=== PATIENT | female | born 1965 | race Caucasian/White ===

== ENCOUNTER → 2021-09-20 09:28 | Outpatient (CLI) | payer OTHER, SELFPAY | PROVIDERS: PCP Family Medicine; Visit Provider Urology | DX: R30.0 Dysuria (principal) | CPT/HCPCS: 81002; 87086 ==

== ENCOUNTER → 2021-09-22 14:58 | Outpatient (CLI) | payer OTHER, SELFPAY | PROVIDERS: PCP Family Medicine; Visit Provider Urology | DX: R30.0 Dysuria (principal) | CPT/HCPCS: 51701; 87086 ==

== ENCOUNTER → 2021-10-04 08:50 | Outpatient (CLI) | payer OTHER, SELFPAY | PROVIDERS: PCP Family Medicine; Visit Provider Urology | DX: R30.0 Dysuria (principal) | CPT/HCPCS: 51701; 87086 ==

== ENCOUNTER 2022-11-07 07:45 | Inpatient (IN) | payer OTHER, SELFPAY ==
[2022-10-31 08:57] VITALS: BMI 29.7
[2022-11-07] VITALS (18 sets, daily range): BP systolic 84–126; BP diastolic 40–73; PULSE 61–84; RESP 8–18; TEMP 35.7–36.3; O2SAT 84–97; BMI 29.7
--- NOTE | 2022-11-07 | DI.RAD.S_ITS ---
PROCEDURE: XR LUMBAR SPINE 2-3V INDICATIONS: L4-S1 TLIF TECHNIQUE: 2 intraoperative views of the lumbar spine were acquired. COMPARISON: [facility], CR, XR LUMBAR SPINE WITH FLEXION EXTENSION 5 VIEWS, 10/02/2022, 17:49. FINDINGS: Right L4-S5 pedicle screw fixation, new. Left L5-S1 pedicle screw fixation, appears unchanged. L4-L5 intervertebral body spacer. Ray-Keanu sponge noted posteriorly. IMPRESSION: Intraoperative guidance provided. Dictated by: Kamran Moody M.D. on 11/07/2022 at 13:41 Approved by: Kamran Moody M.D. on 11/07/2022 at 13:42
--- NOTE | 2022-11-07 08:36 | SUR.OPER ---
Prone on spine table, head in foam head support, padded chest and pelvic supports, gel pad at knees, lower legs supported by pillows; nipples, genitalia and toes free of pressure, arms secured on foam padded arm boards at <90 degrees abduction. Tape over blanket at thigh secured to table.
[2022-11-07] MEDS: LACTATED RINGERS 1,000 ML 42 ML IV ×2 (08:37→11:48)
--- NOTE | 2022-11-07 08:51 | PM.PREOP ---
Pre-operative Note COVID-19 Criteria for continued procedure: Expected advancement of disease process, Possibility delay results in more complex future surgery or treatment, Increased loss of function, Continuing or worsening of significant or severe pain, Deterioration of the patient's condition or overall health and Delay expected to result in less-positive ultimate med/surg outcome Interval Note History & Physical reviewed/Exam performed by Physician: Yes Changes to H&P: No
[2022-11-07] MEDS: CEFAZOLIN 2 GM/100 ML PREMIX 100 ML IV ×2 (09:40→16:32)
[2022-11-07] MEDS: BUPIVACAINE LIPOSOME 266 MG/20 ML VIAL INJ (10:18)
[2022-11-07] MEDS: BUPIVACAINE 0.25% (PF) 30 ML, EPINEPHrine 0.3 MG INJ (10:19)
--- NOTE | 2022-11-07 12:18 | PM.OP.1 ---
Operative Date/Time/Diagnoses Date of procedure: 11/07/22 Time of procedure: 10:00 Pre-op diagnosis: 1. History of L5-S1 fusion with hardware 2. L4-5 spondylolisthesis 3. L4-5 spinal stenosis Post-op diagnosis: same Procedure & Clinicians Procedure: 1. L4-5 posterolateral and posterior interbody fusion 2. L4-5 posterior interbody cage placement 3. L5-S1 posterior non-segmental instrumentation removal 4. L5-S1 revision laminectomy with exploration of fusion 5. L4-5, L5-S1 posterior segmental instrumentation with pedicle screw placement 6. L5-S1 posterolatearl fusion 7. [place] of bone marrow from iliac crest through a separate incision 8. Utilization of microsurgical technique and operating microscope Same procedure as scheduled: Yes Indications: Patient has been having chronic back pain and worsening lumbar radiculopathy. Patient has history of lumbar fusion from 30 years ago with progressively worsening back pain and leg pain. Patient failed multiple conservative management with worsening pain weakness and numbness in her lower extremity. Patient has been having difficulty performing activity of daily living. After discussing risks benefits of treatment options, patient elected proceed with surgery. Surgeon: Flaca Arciniega Warehouse Inventory Clerk: Jolene Quinones Click Yes if Unassisted: No Anesthesia Type: General Operative Notes Closure Type: primary Specimen(s): none sent Prosthetic devices, grafts, tissues, transplants, or devices: Globus revolve screws, Rise cage Applied: catheter Estimated Blood Loss (mL): 50 Blood products transfused: none Procedure in detail: Patient was seen in the preoperative area. Risks and benefits of the surgery was discussed with the patient. Informed consent was obtained from the patient and placed in the chart. Surgical site was marked. Patient was taken to the operative room. General anesthesia was administered. Prophylactic antibiotic was given to the patient less than 30 min before the incision was made. Patient was placed into a prone position on the Dhruv table. Patient's back was then prepped and draped in the sterile fashion. Time-out was performed at this time. Using patient's previous scar incision was made over the L4-5 L5-S1 interval on the right side. Fascia was incised in line with skin incision. Patient's previously placed hardware over the L5-S1 level was identified by dissecting down to the level the hardware using a Bovie and a Ha. The locking nuts which was removed using universal hardware removal instruments. The locking diane was then removed from the [place] of the pedicle screws using a Vanessa. The pedicle screws were then removed using the screwdriver. The screws were found to have good purchase. The Globus and MARS retractors was then placed into the wound and docked onto the L4 lamina using C-arm guidance. Using microsurgical technique and operating microscope a laminectomy facetectomy was performed by removing the L4 lamina and the L4-5 facet. The laminectomy and facetectomy was performed in order to decompress patient's cauda equina as well as the nerve roots exiting at the L4-5 level. The disc space at L4-5 level was identified next. And a total diskectomy was performed at L4-5 level. The endplates were decorticated using a rasp and shaver. The total diskectomy and decortication was performed at L4-5 level in order to to accomplish a L4-5 fusion. The local bone from the laminectomy and facetectomy was saved for local bone grafting. After the total diskectomy and decortication was completed, Trifecta bone graft material was combined with local bone that was harvested earlier. At this time, a separate skin is incision was made over the iliac crest. A Jamshidi needle was inserted into the iliac crest through a separate skin incision. 5 cc of bone marrow aspiration was obtained through the separate skin incision using a Jamshidi needle from the iliac crest. The bone marrow aspiration was combined with local bone and the Trifecta bone grafting material. The bone grafting material was placed into the L4-5 interbody space along with a expandable cage. The cage was expanded to its maximum height using the torque limiting screwdriver. At this time a mirror image incision was made on the left side. The fascia was incised in line with the skin incision. The fusion mass on the right side was exposed by performing a left-sided hemilaminectomy at L5-S1 level. The hemilaminectomy was performed using the Kerrison rongeur to undercut the lamina at L5-S1 as well removing additional epidural scar tissue for purpose of decompressing the epidural space. The fusion mass was explored and was found have visible motion indicating pseudoarthrosis. Globus MARS retractor was inserted and docked onto the L4-5 L5-S1 posterolateral gutter. Using the power drill, posterior-lateral decortication was performed at L4-5 L5-S1 level until bleeding cortical bone was identified. The remaining bone grafting material was placed into the L4-5 L5-S1 posterior lateral gutter he order to accomplish posterolateral fusion at the L4-5 L5-S1 level. Using the double C-arm technique, pedicle screws were placed into the L4-L5 and S1 pedicles on the right. This was done by placing the Jamshidi needle into the pedicles, then placing the guidewires over the Jamshidi needle, and finally placing the cannulated screws over the guidewires bilaterally. After the pedicle screws were placed, a titanium rods was locked into the heads of the pedicle screws using locking caps and torque limiting screwdriver. During the process of hardware removal, it was found there was significant amount of overgrowth of bone over the hardware. Decision was made not to remove the left-sided hardware and perform a unilateral posterior instrumentation on the right side only. The order to remove the hardware, additional bone debridement was necessary which will cause significant amount of tissue disruption and bleeding. Since stability has been achieved using the current replace hardware, we will perform unilateral posterior instrumentation only. Good purchase was accomplished using all the hardware placed on the right side. After all the hardware was placed, and confirmed with AP and lateral C-arm imaging, the wound was then irrigated with sterile normal saline and packed with Ray-Keanu gauze for 3 min to accomplish hemostasis. After the gauze was removed the deep fascia was closed with #1 Vicryl suture. The subcutaneous layer was closed with 2-0 Vicryl. The skin was closed with skin dustin. Patient tolerated the procedure well. There were no complications. Complications: none Post-operative Condition: stable Disposition: PACU Plan for aftercare: Admit to inpatient hospital
[2022-11-07] MEDS: hydrOXYzine 50 MG/ML INJ IM (12:54)
[2022-11-07] MEDS: LORazepam 2 MG/ML INJ 0.5 MG IV (12:57)
[2022-11-07] MEDS: OXYCODONE/ACETAMINOPHEN 5/325 TABLET 1 TAB PO (13:11)
--- NOTE | 2022-11-07 13:14 | SUR.PHASEI ---
IM injection correction : vistaril given IM in left gluteus medius.
--- NOTE | 2022-11-07 13:23 | SUR.PHASEI ---
Report called to Kaia Mooney
--- NOTE | 2022-11-07 13:44 | SUR.PHASEI ---
Patient transferred to the floor with her belongings bag. Report given to Haylee STODDARD stable. IV patent. Back dressing unchanged. Patient moving all extremities independently and answering simple questions but has not been speaking in sentences.
[2022-11-07] MEDS: LACTATED RINGERS 1,000 ML 125 ML IV ×2 (13:55→22:11)
--- NOTE | 2022-11-07 14:21 | PC.NURSE ---
Pt to room 216 via bed from PACU at 1335. Pt is drowsy but awakens when called by name. Falls back asleep readily but is able to answer questions appropriately. Warm blanket and additional pillows placed for Pt comfort. Reminded Pt not to bend, lift, or twist and to logroll in/out of bed. Oriented Pt to room, call light, bed controls, and tv controls. SCD's on and running. IV infusing as ordered. Pt denies nausea or shortness of breath. Reminded Pt not to get out of bed without assistance. Bed alarm on for safety.
[2022-11-07] MEDS: ONDANSETRON 4 MG/2 ML INJ IV (16:32)
[2022-11-07] MEDS: OXYCODONE IR 10 MG TABLET PO ×2 (16:32→21:25)
[2022-11-07] MEDS: GABAPENTIN 400 MG CAPSULE PO (21:24)
[2022-11-07] MEDS: ATORVASTATIN 20 MG TABLET 40 MG PO (21:24)
[2022-11-07] MEDS: DOCUSATE 100 MG CAPSULE PO (21:24)
[2022-11-07] MEDS: SENNOSIDES 8.6 MG TABLET 17.2 MG PO (21:25)
--- NOTE | 2022-11-07 23:10 | PC.NURSE ---
Patient is alert and oriented. Breath sounds CTA with RA sat of 94%. HRR. Denies nausea. BT present and is passing flatus. Up to BSC with SBA (not using assistive device) and voiding without dysuria. Is adhering to log rolling instructions when turning self in bed. CMS intact although around 2200 she reported new numbness in right upper thigh. Dressing to back is CDI. Wearing bilateral calf SCD's. Medicated earlier with oxycodone and is currently asleep. Fall risk score is moderate and bed alarm is activated.
[2022-11-08] VITALS: BP 122/69; PULSE 80; RESP 16; TEMP 36.4; O2SAT 95
[2022-11-08] MEDS: CEFAZOLIN 2 GM/100 ML PREMIX 100 ML IV (01:49)
[2022-11-08] MEDS: OXYCODONE IR 10 MG TABLET PO ×3 (03:24→12:50)
[2022-11-08 04:00] VITALS: BP 99/54; PULSE 63; RESP 17; TEMP 36.1; O2SAT 95
[2022-11-08] MEDS: DOCUSATE 100 MG CAPSULE PO (08:12)
[2022-11-08] MEDS: CALCIUM CARBONATE 500 MG TAB PO (08:12)
[2022-11-08] MEDS: METFORMIN HCL 500 MG TABLET PO (08:14)
[2022-11-08] MEDS: GABAPENTIN 400 MG CAPSULE PO (08:14)
[2022-11-08] MEDS: CHOLECALCIFEROL (VITAMIN D3) 400 UNIT TABLET PO (08:15)
[2022-11-08] MEDS: SODIUM CHLORIDE 0.9% FLUSH 10 ML IV (08:15)
--- NOTE | 2022-11-08 09:35 | PT.IIE ---
Current Diagnoses Spondylolisthesis, lumbar region (11/07/22) Arthrodesis status (11/07/22) Surgery Performed Operation Date: 11/07/22 09:15 Actual Procedures p L4-5 TLIF w. posterior instrumentation, L5-S1 HWR, L4-S1 PSF - Flaca Arciniega MD Surgical History (Last Reviewed 11/08/22 @ 10:55 by Vijaya Lucas PA-C) H/O laparoscopy H/O tubal ligation (1989) History of arthroscopy of left shoulder History of arthroscopy of right shoulder History of bladder surgery (2021) History of carpal tunnel surgery of left wrist (2020) History of carpal tunnel surgery of right wrist (2019) History of lumbar spinal fusion (1992) History of lumbar spinal fusion (1992) History of orthopedic surgery (2018) Hx of abdominoplasty (2000) Hx of arthroscopy of left knee (~1993) Hx of arthroscopy of right knee (~1993) Hx of cholecystectomy (2015) Hx of eye surgery (2014) Medical History (Last Reviewed 11/08/22 @ 10:55 by Vijaya Lucas PA-C) Atrophic vaginitis History of COVID-19 (10/2020) History of stress incontinence HLD (hyperlipidemia) HTN (hypertension) Hx of migraines Mixed incontinence Physical Therapy Inpatient Evaluation/Re-Eval M1 PT/OT-IP Prior Functional Status Start: 11/08/22 14:08 Freq: NEEDED Status: Active Protocol: Document 11/08/22 09:35 AB (Rec: 11/08/22 14:18 AB [id number]) Medical Review Prior Functional Status Medical History Reviewed Yes Communication able to make needs known Mobility and Gait pt stated that she is independent with all mobilities and ambulation without AD Social History Household Members spouse Living Arrangements House Number of Floors (Floors) One Floor Number of Stairs To Enter/Railing? ramp to enter ( ~ 75 ft walk) ; can use 2 steps to enter but without rails Home Environment High Toilet,Walk in Shower, Built-In Shower Seat Home Equipment Front Wheel Walker,Hand Held Shower Additional Social History Comment has a high bed to get into M2 PT-IP Current Condition Start: 11/08/22 14:08 Freq: NEEDED Status: Active Protocol: Document 11/08/22 09:35 AB (Rec: 11/08/22 14:18 AB [id number]) Physical Therapy Current Condition Current Condition Evaluation Date 11/08/22 Treatment Diagnosis s/p L4-5, L5S1 TLIF; difficulty in walking Onset Date 11/07/22 M3 PT-IP Subjective Start: 11/08/22 14:08 Freq: NEEDED Status: Active Protocol: Document 11/08/22 09:35 AB (Rec: 11/08/22 14:18 AB [email or web address]) Subjective Physical Therapy Visit Type Type Initial Evaluation Visit Start Time 09:35 Visit Stop Time 10:55 Total Visit Minutes 55 Notes pt seen for split visits: 935 to 945 and 1010 to 1055 Number of COMMITTEE MEMBER Visits 0 Physical Therapy Visit Comments Patient Comments agreeable to do PT Therapy Pain Assessment Pain When Pain Assessed At Rest Pain Present Pain Present Pain Reported Location Back Intensity 5 Scale Used Numeric (0 - 10) Pain Management Techniques Distraction,Modification of Treatment,Re-positioning, Timing of Activity with Medications M4 PT-IP Mobility and Gait Start: 11/08/22 14:08 Freq: NEEDED Status: Active Protocol: Document 11/08/22 09:35 AB (Rec: 11/08/22 14:18 AB [id number]) PT-Bed Mobility Assessment Rolling Type of Rolling Log Rolling Level of Assist Standby Assistance Supine to Sit Supine to Sit Standby Assistance Sit to Supine Sit to Supine Standby Assistance PT-Transfer Assessment Sit to and From Stand Sit to and from Stand Standby Assistance,Contact Guard Assistance,1 Person Assistance,Use of Upper Extremities Equipment Transfer Assistive Device Gait Belt,Front Wheeled Walker Orthotic/Prosthetic Devices or Brace: No Comments Mobility Comments educated pt regarding back precautions and log roll bed mobility. pt stated that she has a high bed and usually hops on to get in. pt stated that she has a foot stool that she can use to get into the bed. BP in supine: 114/44 pt completed supine to sit log roll SBA and cues. pt able to sit on EOB SBA. BP: 125/66 . PT demonstrated and educated pt on how to use step stool to get into the bed. pt completed sit to stand CGA and ambulated ~ 15 ft and back towards the bed. able to step up into foot stool using FWW and back up on EOB and sat on EOB. demonstrated bed mobility SBA without cues. pt sat on EOB again. repeated ambulation in bed and up foot stool using FWW without cues SBA. pt agreed to ambulate in the hallway and completed ~ 50 ft using FWW SBA. pt requested to go back to bed. completed bed mobility SBA. positioned in bed. BP: 120/71 . call light and table placed within reach. pt without further concerns. Gait Assessment Gait Gait Assistance Required: Standby Assistance Distance (Feet) 50 Able to Maintain Weight Bearing Status Yes During Gait Assistive Devices Assistive Device Gait Belt,Front Wheeled Walker Orthotic/Prosthetic Devices or Brace: No Gait Deviations General Gait Pattern Decreased Stride Length, Decreased Feet Clearance Factors Limiting Gait Function Factors Limiting Gait Function Decreased Activity Tolerance, Decreased Sensation,Decreased Strength,Limited Range of Motion,Pain,Poor Balance PT-Balance Assessment Sitting Balance and Reactions Static Sitting Balance Ability Normal Dynamic Sitting Balance Ability Normal Standing Balance and Reactions Static Standing Balance Ability Good Dynamic Standing Balance Ability Fair Device Used FWW M5 PT-IP Objective Assessments Start: 11/08/22 14:08 Freq: NEEDED Status: Active Protocol: Document 11/08/22 09:35 AB (Rec: 11/08/22 14:18 AB [id number]) Orientation Orientation/Cognition Level of Alertness Alert Orientation Name,Place,Situation Language Function Ability No Deficits Noted Safety Awareness Understands Safety Issues Memory Description No Deficits Noted Gross Range of Motion Lower Extremity ROM Assessment Within Functional Limits Strength Lower Extremity Strength Assessment Right Impaired Hip 3+/5 Knee 4-/5 Coordination Assessment Gross Coordination Gross Coordination WNL Sensation Assessment Sensation Gross Sensation Right LE Impaired,Left LE Impaired Sensation Description Tingling Comments Sensation Comments c/o slight tingling on B anterior thighs Muscle Tone Muscle Tone WNL Yes M6 PT-IP Treatment Start: 11/08/22 14:08 Freq: NEEDED Status: Active Protocol: Document 11/08/22 09:35 AB (Rec: 11/08/22 14:18 AB [email or web address]) Physical Therapy Treatment Education Education Provided Precautions,Weight Bearing Status,Post-Op Packet,Safety M7 PT-IP Assessment and Plan Start: 11/08/22 14:08 Freq: NEEDED Status: Active Protocol: Document 11/08/22 09:35 AB (Rec: 11/08/22 14:18 AB [email or web address]) PT Summary Assessment and Plan Potential Rehabilitation Potential Fair Status of Condition at Evaluation Stable Summary Impairments Pain,ROM,Strength,Balance, Coordination,Sensation,Tone, Cognition,Bed Mobility, Transfers,Gait,Activity Tolerance Assessment Summary pt requiring SBA with mobility using FWW. pt plans to go home and spouse will be able to assist. pt may go home when medically stable. Goals Bed Mobility Goal Independent Transfer Goal Independent,Front Wheeled Walker Gait Goal Independent,Front Wheel Walker Gait Distance 200 Days to Meet Goals 5 Frequency of Treatment Frequency Of Treatment Twice a Day Treatment Plan Physical Therapy Treatment Plan Bed Mobility Training,Transfer Training,Gait Training, Therapeutic Exercise,Balance Retraining,Post Op Education, Discharge Planning,Hot or Cold Pack,Neuromuscular Re-ed, Coordination Retraining,Manual Therapy Precautions Lumbar Precautions Log Roll,No Twisting,Limit Bending,Lifting Restriction of 10 lbs,Gait Belt above Incisional Area Recommendations To Nursing Amount of Assist Needed 1 Person Assist Discharge Recommendations PT Discharge Recommendations Home with Assistance Transportation Needs at Discharge Private Vehicle
--- NOTE | 2022-11-08 10:54 | P.PN_ITS ---
Subjective Subjective Interval history: Patient is awake lying comfortably in bed. States she has no pain if she remains still in bed. She has been up to use the commode and has walked to her chair and back with no issues. Pain has been well controlled with medication. She is looking forward to working with Physical therapy this morning. Exam Vital Signs (past 8 hours): - 11/08/22 04:00 11/08/22 04:00 11/08/22 07:00 Temperature 97.0 F L Pulse Rate 63 Respiratory Rate 17 Blood Pressure 99/54 L Pulse Oximetry 95 Oxygen Delivery Method Room Air Oxygen Flow Rate 0 Oxygen Delivery Method Room Air Oxygen Flow Rate 0 Narrative Exam Narrative: Pleasant 57-year-old female. Awake, alert, and oriented. Intraoperative bandage clean, dry, and intact. Strength intact to bilateral lower extremities. Sensation intact except for bilateral decreased sensation to the lateral thighs, right decreased more than left. Bilateral calves soft, compressible, nontender with no palpable cords or masses. [facility] Medical History Atrophic vaginitis History of COVID-19 (10/2020) History of stress incontinence HLD (hyperlipidemia) HTN (hypertension) Hx of migraines Mixed incontinence Surgical History H/O laparoscopy H/O tubal ligation (1989) History of arthroscopy of left shoulder History of arthroscopy of right shoulder History of bladder surgery (2021) History of carpal tunnel surgery of left wrist (2020) History of carpal tunnel surgery of right wrist (2019) History of lumbar spinal fusion (1992) History of lumbar spinal fusion (1992) History of orthopedic surgery (2018) Hx of abdominoplasty (2000) Hx of arthroscopy of left knee (~1993) Hx of arthroscopy of right knee (~1993) Hx of cholecystectomy (2015) Hx of eye surgery (2014) Family History Father CVA (cerebrovascular accident due to intracerebral hemorrhage) Mother Diabetes mellitus Social History marital status: number of children: 3 household members: spouse Smoking Status: Former smoker alcohol intake: current Assessment & Plan Post-op Postoperative Procedures: Procedures Operation Date: 11/07/22 09:15 Actual Procedure Side Surgeon p L4-5 TLIF w. posterior instrumentation, L5-S1 HWR, L4-S1 PSF Flaca Arciniega MD Postoperative day: 1 Postoperative status: doing well Postoperative status narrative: Patient is progressing as expected after L4-S1 TLIF. Pain is well controlled on medication. Postoperative plan: routine post-op care Postoperative plan narrative: Plan to work with physical therapy today. Continu e multimodal pain regimen. Patient plans to discharge to home with when safe for home environment. Quality VTE Deep Vein Thrombosis/Pulmonary Embolism Present on Admission: No
--- NOTE | 2022-11-08 11:08 | CM.DANOTE ---
Addendum entered by GENARO Seymour 11/08/22 14:37: ADD: Per PT/OT, pt able to participate and ambulated the halls and recommending home with assist and outpt f/u. Ortho placed d/c orders for discharge home with spouse assist today and no further needs at this time. BF Original Note: Patient is a 57 yo female who was admitted on 11/07/22 for TLIF. Pt has REG PPO for insurance and her PCP is Adam Reno. EMR was reviewed. Per Ortho, pt tolerated procedure well and to work with PT/OT for possible d/c home today pending progress. Per RN, pt was able to ambulate to [facility] with SBA and no concerns at this time. Pt tolerated breakfast and pain seems managed. PT/OT ordered and pending. SW met bedside with pt and spouse and explained role and they confirm they live at home in [place] and pt is active and independent at baseline and states she did a year of outpt PT prior to surgery. Pt denies any use of DME at baseline and drives. Spouse is retired as well and available for assist if needed. Pt denies any hx of HH or SNF and does not anticipate any d/c needs but awaiting PT/OT eval and CG training to confirm no d/c needs. Plan: SW to follow for PT/OT eval and recommendations to confirm if any d/c planning needs and safe for discharge to home with spouse assist. GENARO Seymour Discharge Planning/Care Management CM Discharge Assessment Start: 11/08/22 11:06 Freq: Status: Active Protocol: Document 11/08/22 11:06 (Rec: 11/08/22 11:08 [id number]) Discharge Planning Assessment Assigned Lotus Notes Developer GENARO Tay DPOA/Assigned Designee Name spouse Hoang informally Contact Information [phone] Advance Directives? Yes Advance Directives on File No: Patient has copy with her History Provided By Patient,Significant Other, Medical Record Has Patient been admitted in last 30 No days? Prior Living Arrangements House Household Members spouse Type of transporation used prior to Drives own vehicle admit Independent with ADL's Yes Is patient alert and oriented? Yes Caregiver for Another No Community Services used prior to Physical Therapy admission: Patient/Family Preference OP PT Therapy Barriers to Discharge No Discharge Plan Home Transportation Arrangement spouse bedside and can transport at d/c Referrals Initiated None needed Additional Comment Pending PT/OT eval and recommendations Whiteboard Updated in Patient Room with Yes name and ext. # of Lotus Notes Developer Review Status In Process Please Provide Date Initial DC 11/08/22 Assessment Was Performed Next Review Type Continued Stay Review Pre-Anesthesia Assessment Start: 10/31/22 08:57 Freq: Status: Complete Protocol: Document 10/31/22 08:57 CAB (Rec: 10/31/22 09:30 CAB [id number]) Pre-Anesthesia Assessment Patient Information Reviewed Via Phone Assessment Assessment Completed With Patient Diagnostic Results BMP/CMP,CBC,EKG Comment Outside labs/EKG scanned Primary Care Provider Dee Dee Reno Seen Specialist in Last 12 Months Yes Specialist Seen Orthopedist,Urologist Primary Language [place] Carrier Driver Required No Height 167.64 cm Weight 83.461 kg Body Mass Index (BMI) 29.7 Hearing Ability Normal Visual Assist Glasses Barriers to Learning None Other Aids Yes: Perm retainer upper front Hx Anesthesia Reactions No Hx Family Anesthesia Reaction No Hx Malignant Hyperthermia No Hx Blood Transfusions No Anesthesia Review Requested No Cage Manager No alcohol intake current alcohol intake frequency holidays/special occasions only Smoking Status Former smoker how long ago did patient quit smoking Quit age 23 Substance Use Type does not use Pain Present Pain Reported Musculoskeletal Symptoms Abnormal Gait,Back Pain History of Falling (Recent or History of No ) Patient is completely paralyzed or No completely immobile Mental Status Oriented to own ability Is patient on oxygen? No Does patient have DAVIES/SOB No Hx Sleep Apnea No Currently Taking a Beta Samantha No Can You Climb a Flight of Stairs Without Yes SOB Hx Chest Pain No Hx SOB No Hx Syncope or Dizziness No Anti-Coagulant Therapy No Has a Buzzsaw Operator Helper No Cardiac Testing No Hx Pacemaker/ICD No Pacemaker Rep Required? 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 Received a COVID vaccine? Yes Received all doses? Yes Marital Status Lives With spouse Current Living Arrangements House Number of Floors (Floors) One Floor Support System Spouse Does the Patient Have Assistance After Yes Surgery Patient Discharge Plan Description Return Home Comment Pt advised 2 night length of stay per surgeon Feels Safe in Current Environment Yes Been Physically Hurt or Threatened By a No Person in Current Environment Do you have thoughts of harming yourself None or others? Are you currently considering suicide? No Do you have a plan to hurt yourself or No Plan others? Do You Have Any Spiritual Beliefs That No May Affect Your HC Choices? Do You Have Any Cultural Practices That No May Affect Your HC Choices? Who Can We Speak to About Patient's Care Family, friends Identifying Code for Release of Patient Declines to issue Information Health Care Proxy/Next of Kin Hoang () Health Care Proxy 0 Emergency Contact Name Hoang () Emergency Contact 0 Advance Directives? Yes Advance Directives on File No Requested Patient Bring Advanced Yes Directives DOS Power of Brokerage Coordinator Yes Power of Brokerage Coordinator Name Hoang () Power of Brokerage Coordinator 0 PAC Instructions Diabetes instructions,Durable medical equipment,Medications to take/avoid,Nasal antibiotic ,No ETOH/petroleum product on skin DOS,NPO,Pre-surgical wash ,Sensory aids,Sturdy shoes/ comfortable clothes,Do not bring valuables and remove jewelry
[2022-11-08] MEDS: hydrOXYzine pamoate 25 MG CAPSULE PO (12:51)
[2022-11-08 13:00] VITALS: BP 121/62; PULSE 73; RESP 17; TEMP 36.2; O2SAT 98
--- NOTE | 2022-11-08 13:20 | OT.IP.EVAL ---
Current Diagnoses Spondylolisthesis, lumbar region (11/07/22) Arthrodesis status (11/07/22) Surgery Performed Operation Date: 11/07/22 09:15 Actual Procedures p L4-5 TLIF w. posterior instrumentation, L5-S1 HWR, L4-S1 PSF - Flaca Arciniega MD Past Medical History (Last Reviewed 11/08/22 @ 10:55 by Vijaya Lucas PA-C) Atrophic vaginitis History of COVID-19 (10/2020) History of stress incontinence HLD (hyperlipidemia) HTN (hypertension) Hx of migraines Mixed incontinence Surgical History (Last Reviewed 11/08/22 @ 10:55 by Vijaya Lucas PA-C) H/O laparoscopy H/O tubal ligation (1989) History of arthroscopy of left shoulder History of arthroscopy of right shoulder History of bladder surgery (2021) History of carpal tunnel surgery of left wrist (2020) History of carpal tunnel surgery of right wrist (2019) History of lumbar spinal fusion (1992) History of lumbar spinal fusion (1992) History of orthopedic surgery (2018) Hx of abdominoplasty (2000) Hx of arthroscopy of left knee (~1993) Hx of arthroscopy of right knee (~1993) Hx of cholecystectomy (2015) Hx of eye surgery (2014) Occupational Therapy Inpatient Evaluation/Re-Eval M1 PT/OT-IP Prior Functional Status Start: 11/08/22 14:08 Freq: NEEDED Status: Active Protocol: Document 11/08/22 09:35 AB (Rec: 11/08/22 14:18 AB [id number]) Medical Review Prior Functional Status Medical History Reviewed Yes Communication able to make needs known Mobility and Gait pt stated that she is independent with all mobilities and ambulation without AD Social History Household Members spouse Living Arrangements House Number of Floors (Floors) One Floor Number of Stairs To Enter/Railing? ramp to enter ( ~ 75 ft walk) ; can use 2 steps to enter but without rails Home Environment High Toilet,Walk in Shower, Built-In Shower Seat Home Equipment Front Wheel Walker,Hand Held Shower Additional Social History Comment has a high bed to get into M2 OT-IP Current Condition Start: 11/08/22 14:00 Freq: Status: Active Protocol: Document 11/08/22 12:45 CCC (Rec: 11/08/22 14:20 [facility] [id number]) Occupational Therapy Current Condition Current Condition Evaluation Date 11/08/22 Treatment Diagnosis S/p L4-5 TLIF, L5-S1 hardware removal, L4-S1 PSF Diagnosis Onset Date 11/07/22 Post Operative Precautions Lumbar Precautions Log Roll,No Twisting,Limit Bending,Lifting Restriction of 10 lbs,Gait Belt above Incisional Area M3 OT- IP Subjective and Pain Start: 11/08/22 14:00 Freq: Status: Active Protocol: Document 11/08/22 12:45 [facility] (Rec: 11/08/22 14:20 [facility] [id number]) OT- Subjective Occupational Therapy Visit Type Type Initial Evaluation Visit Start Time 12:45 Visit Stop Time 13:20 Total Visit Minutes 35 Occupational Therapy Visit Comments Patient Comments Pt agreed to get up and get dressed. Pt's in the room. Patient/Caregiver Goals To go home. OT Pain Assessment Pain When Pain Assessed At Rest Pain Present Pain Present Pain Reported Location Back Intensity 8 Scale Used Numeric (0 - 10) M4 OT- IP ADL's Start: 11/08/22 14:00 Freq: Status: Active Protocol: Document 11/08/22 12:45 [facility] (Rec: 11/08/22 14:20 [facility] [id number]) OT [id number] General Evaluation Self-Feeding Ability Independent OT ADL-Grooming Comments OT Grooming Comments Pt states did prior. OT ADL-Oral Care Comments Oral Care Comments Educated best to spit into a cup to best follow her back precaution or hinge at her hips . OT ADL-Dressing General Eval Lower Body Dressing Ability Moderate Assistance Comments OT Dressing Comments Assist to get the heel of her shoe on. Pt able to use sock aid to help armando her socks, otherwise too painful to cross her legs over to armando her socks at this time. OT ADL-Toileting Comments OT Toileting Comments Pt able to reach appropriately while standing and agreed to get wet wipes to increase ease for hygiene needs. OT ADL-Bathing Comments OT Bathing Comments Not performed, pt states to shower at home. M5 OT- IP IADL's Start: 11/08/22 14:00 Freq: Status: Active Protocol: Document 11/08/22 12:45 [facility] (Rec: 11/08/22 14:20 [facility] [id number]) OT-Instrumental Activities of Daily Living Home Safety Awareness Awareness of Need for Assistance at Home Good Awareness Home Safety Comments Pt has a supportive to assist with her needs at home . M6 OT- IP Functional Cognition Start: 11/08/22 14:00 Freq: Status: Active Protocol: Document 11/08/22 12:45 [facility] (Rec: 11/08/22 14:20 [facility] [id number]) Cognitive Factors Limiting Selfcare Function Cognitive Ability Level of Alertness Alert Patient Orientation Name,Age,Birthday,Month,Date, Year,Day of Week,Place, Situation Attention Span Ability Capable of Focused Attention, Capable of Sustained Attention Ability to Follow Commands Able to Follow One Step Commands Safety Awareness Decreased Ability to Apply Precautions Cognitive Comments Cognitive Assessment Comments Pt needing cues to incorporate her back precautions especially for not to twist. OT- Vision and Hearing OT- Hearing Assessment OT- Hearing Assessment WFL M7 OT- IP Mobility and Balance Start: 11/08/22 14:00 Freq: Status: Active Protocol: Document 11/08/22 12:45 [facility] (Rec: 11/08/22 14:20 [facility] [id number]) OT- Bed Mobility Assessment Supine to Sit Supine to Sit Assist Standby Assistance Sit to Supine Sit to Supine Assist Standby Assistance OT-Transfer Assessment Sit to and From Stand Sit to and from Stand Standby Assistance Comments Mobility Comments SBA for log rolling and coming to stand so able to get dressed. OT- Balance Assessment Sitting Balance and Reactions Static Sitting Balance Ability Good Dynamic Sitting Balance Ability Good Standing Balance and Reactions Static Standing Balance Ability Good Dynamic Standing Balance Ability Fair M9 OT- IP Assessment and Plan Start: 11/08/22 14:00 Freq: Status: Active Protocol: Document 11/08/22 12:45 [facility] (Rec: 11/08/22 14:20 [facility] [id number]) OT Summary Assessment and Plan Potential Rehabilitation Potential Good Analytic Complexity at Evaluation Low Summary OT Impairments Pain,Balance,Functional Mobility,Dressing,Toileting, Bathing,Toilet Transfers, Shower Transfers Progress Towards Goals Progressing Toward Goals Assessment Summary Pt low complexity and main barrier is pain and that she has a supportive to be able to assist her at home for all needs. Pt states to look into getting a shower chair and possibly a sock aid . Pt to go home with her to assist when medically stable. Goals Grooming Goal Independent Dressing Goal Independent Toileting Goal Independent Toilet Transfer Goal Independent Shower Transfer Goal Independent Days to Meet Goals 7 Frequency of Treatment Frequency Of Treatment Once a Day Treatment Plan OT Treatment Plan ADL Training,Functional Mobility,Patient/Family Education,Discharge Planning Discharge Recommendations OT Discharge Recommendations Home with Assistance Home Equipment Needs shower chair, sock aid Transportation Needs at Discharge Private Vehicle
--- NOTE | 2022-11-08 15:15 | PC.NURSE ---
Discharge note: Discharge instructions given to patient and spouse, discussed importance of F/U with Ortho on 11/21, new medications, mobility precautions, and dressing care. Rx to be picked up on way home. Spouse and patient verbalized understanding of discharge instructions. Home via private vehicle in stable condition. Dressing to lower back changed prior discharge.
== END 2022-11-08 15:20 | disposition home or self-care (01) | DRG 454 ==
PROVIDERS: Admitting Provider Orthopaedic Surgery Orthopaedic Surgery of the Spine; PCP Family Medicine; Referring Provider Orthopaedic Surgery Orthopaedic Surgery of the Spine; Visit Provider Orthopaedic Surgery Orthopaedic Surgery of the Spine
PROC: 0SG00AJ Fusion of Lumbar Vertebral Joint with Interbody Fusion Device, Posterior Approach, Anterior Column, Open Approach (ICD-10-PCS; principal; 2022-11-07 09:15)
DX: M43.16 Spondylolisthesis, lumbar region (principal); M96.0 Pseudarthrosis after fusion or arthrodesis; M48.061 Spinal stenosis, lumbar region without neurogenic claudication; M96.1 Postlaminectomy syndrome, not elsewhere classified; E78.5 Hyperlipidemia, unspecified; Z87.891 Personal history of nicotine dependence; Z98.1 Arthrodesis status; Z20.822 Contact with and (suspected) exposure to COVID-19
CPT/HCPCS: 72100; 76000; 97161; 97165; 97530; 97535; C1713; C9290; J0171; J0690; J1100; J1170; J2060; J2250; J2405; J2704; J3010; J3410

== ENCOUNTER 2023-01-18 13:49 | Day surgery (SDC) | payer OTHER, SELFPAY ==
[2022-11-07 13:44] VITALS: BMI 29.7
[2023-01-14 09:58] VITALS: BMI 30.7
[2023-01-18 14:07] VITALS: BP 130/82; PULSE 80; RESP 17; TEMP 36.1; O2SAT 98; BMI 30.7
[2023-01-18] MEDS: LACTATED RINGERS 1,000 ML 42 ML IV ×2 (14:16→20:08)
--- NOTE | 2023-01-18 16:46 | PM.PREOP ---
Pre-operative Note Interval Note History & Physical reviewed/Exam performed by Physician: Yes Changes to H&P: No
--- NOTE | 2023-01-18 16:46 | PM.OP.1 ---
Operative Date/Time/Diagnoses Date of procedure: 01/18/23 Time of procedure: 16:46 Pre-op diagnosis: Right second metatarsophalangeal plantar plate suspected tear, metatarsalgia Post-op diagnosis: same Procedure & Clinicians Procedure: Right second metatarsal osteotomy, Right second metatarsophalangeal joint plantar plate repair. Same procedure as scheduled: Yes Indications: 57-year-old female with painful 2nd toe and ball of the foot. Conservative measures have failed to alleviate her pain and she wished to have surgical intervention this time. We spoke about the risks, potential complications, alternatives to treatment, and expected outcomes. Consent was signed and there were no contraindications to the procedure at this time. Surgeon: Any Mariscal Click Yes if Unassisted: Yes Anesthesia Type: General Operative Notes Closure Type: primary Specimen(s): none sent Prosthetic devices, grafts, tissues, transplants, or devices: [employer] 2.0 cortical screw Estimated Blood Loss (mL): 20 Blood products transfused: none Tourniquet time (min): 59 Procedure in detail: The patient was brought to the operating room and placed on the operating table in the supine position. The tourniquet was placed about the right ankle. Well padded, appropriately aligned. After induction of general anesthesia, local anesthesia was delivered to the right second toe area then the foot and ankle were prepped and draped in the usual aseptic manner. The tourniquet was inflated. After a check of anesthesia, and incision was made over the dorsal 2nd metatarsophalangeal joint. The incision was deepened through subcutaneous tissues being careful to identify and retract all vital neural and vascular structures. All bleeders were cauterized and ligated as necessary. Once the capsule was entered the metatarsal head and neck were exposed and using the aid of C-arm, a saw was used to create an osteotomy from the dorsal head of the metatarsal paralell to the weightbearing surface. The head was moved proximally. This was temporarily fixated with a k-wire and then using standard AO technique, a 2-0 screw was placed across this. K-wire was removed this was checked under C-arm and strength was good as well as compression and within the parabola The plantar aspect of the joint space was reviewed. Plantar plate was inspected for injury or tear. The thick plate showed a tear from the base of the lateral proximal phalanx. It was a partial tear with the majority of the fibers in place, The thick edge of the tear was trimmed away sharply, and using a very small gauge ethibond I was able to put a series of tiny sutures in it to repair to the surrounding tissue plantarly on the plate itself. The area was irrigated with normal saline. Once these two procedures were completed, the forefoot was loaded and the second toe did not have the contracture it did before, so the decision was made not to perform the arthrodesis. Tourniquet was deflated, a prompt hyperemic response was seen to the foot. Subcutaneous closure using Vicryl suture. Nylon was used to close the skin. A lightly compressive dressing was placed on the foot and she was placed in stockinette and postsurgical boot and transferred to the PACU with vital signs stable. Complications: none Post-operative Condition: stable Plan for aftercare: Following a period of postoperative monitoring, the patient will be discharged to home on written and oral postoperative instructions including keeping the dressing dry and intact, no weight to the surgical foot, icing and elevating the foot when seated home. DVT prevention techniques have been reviewed. For the 1st postoperative visit the dressing will be changed and close to the 4th postoperative week we will likely take x-rays of the foot.
[2023-01-18] MEDS: MIDAZOLAM 2 MG/2 ML VIAL IV ×2 (17:15→17:28)
[2023-01-18 17:18] VITALS: BP 138/80; PULSE 75; RESP 21; O2SAT 96
--- NOTE | 2023-01-18 17:20 | SUR.PREOP ---
Patient's surgery still delayed due to other circumstances unrelated to her case; becoming anxious. Verbal order received from VIKRAM Chan for Versed 1 mg IV now with ability to repeat x 1 if needed. at bedside; vss.
[2023-01-18] MEDS: CEFAZOLIN 2 GM/100 ML PREMIX 100 ML IV (19:15)
--- NOTE | 2023-01-18 19:41 | SUR.OPER ---
Supine on padded OR bed, head on pillow, arms secured on padded arm boards at <90 degrees abduction, legs uncrossed, safety belt at thigh, tape over blanket over lower legs.
[2023-01-18] MEDS: BUPIVACAINE 0.5% (PF) 30 ML VIAL INJ (19:46)
[2023-01-18 21:06] VITALS: BP 134/73; PULSE 74; RESP 18; TEMP 37.2; O2SAT 99
[2023-01-18 21:09] VITALS: BP 139/73; PULSE 67; RESP 11; O2SAT 99
[2023-01-18] MEDS: ONDANSETRON 4 MG/2 ML INJ IV (21:11)
[2023-01-18] MEDS: HYDROCODONE/ACET 5/325 TABLET 1 TAB PO (21:11)
[2023-01-18 21:16] VITALS: BP 142/53; PULSE 68; RESP 11; O2SAT 98
[2023-01-18 21:20] VITALS: BP 144/58; PULSE 63; RESP 13; O2SAT 98
== END 2023-01-18 21:34 | disposition home or self-care (01) ==
PROVIDERS: PCP Family Medicine; Referring Provider Podiatrist; Visit Provider Podiatrist
PROC: (CPT 28308; principal; 2023-01-18 15:15)
DX: S93.524A Sprain of metatarsophalangeal joint of right lesser toe(s), initial encounter (principal); M77.41 Metatarsalgia, right foot
CPT/HCPCS: 28308; 28899; J0690; J2250; J2405; J2704; J3010